=== PATIENT | female | born 1965 | race Asian ===

== ENCOUNTER 2023-05-09 17:08 | Emergency (ER) | payer OTHER, SELFPAY ==
[2023-05-09 17:23] VITALS: BP 140/62; PULSE 87; RESP 16; TEMP 36.7; O2SAT 96; BMI 21.9
--- NOTE | 2023-05-09 17:26 | DI.RAD.S_ITS ---
PROCEDURE: XR CHEST 1V INDICATIONS: PRODUCTIVE COUGH X 5 DAYS TECHNIQUE: One view of the chest was acquired. COMPARISON: None. FINDINGS: Surgical changes and devices: None. Lungs and pleura: No dense consolidation or pleural effusion. Mediastinum: Normal heart size Bones and chest wall: Unremarkable IMPRESSION: Portable single view radiograph without acute abnormality. Dictated by: Kevin Gómez M.D. on 05/09/2023 at 18:12 Approved by: Kevin Gómez M.D. on 05/09/2023 at 18:12
[2023-05-09 17:32] VITALS: PULSE 81; O2SAT 98
[2023-05-09 17:33] VITALS: BP 121/76; PULSE 81; O2SAT 97
--- NOTE | 2023-05-09 17:34 | ED.URI ---
HPI - URI/Sore Throat <Sheila Becerril MD - Last Filed: 05/10/23 12:39> General Chief Complaint: Upper Respiratory Symptoms Stated Complaint: cough for 5 days Time Seen by Provider: 05/09/23 17:26 Source: patient Mode of arrival: Family Vehicle History of Present Illness HPI Narrative: 57-year-old female with history of hyperlipidemia presents for 6 days of productive cough and subjective fevers. No measured temperature at home. Has been using [id number] decongestants as well as cough and cold medications without significant relief. Also endorsing sore throat x1 day. Related Data Previous Rx's Medication Instructions Recorded benzonatate 100 mg capsule 100 mg PO BID-TID PRN cough #20 05/09/23 caps Allergies Allergy/AdvReac Type Severity Reaction Status Date / Time No Known Allergies Allergy Uncoded 08/01/17 12:40 Review of Systems <Sheila Becerril MD - Last Filed: 05/10/23 12:39> Review of Systems Narrative: Negative except as noted above Exam <Sheila Becerril MD - Last Filed: 05/10/23 12:39> Initial Vital Signs Initial Vital Signs: Vital Signs Temperature 98.0 F 05/09/23 17:23 Pulse Rate 87 05/09/23 17:23 Respiratory Rate 16 05/09/23 17:23 Blood Pressure 140/62 05/09/23 17:23 Pulse Oximetry 96 05/09/23 17:23 Oxygen Delivery Method Room Air 05/09/23 17:23 Const: Awake, alert, ill-appearing, nontoxic Eyes: PERRL, EOMI, conjunctiva normal ENT: Pharyngeal erythema without edema or exudates Cardiac: regular rate, regular rhythm RESP: clear bilaterally, no wheezing, active coughing GI: Atraumatic, soft, nontender, nondistended, no rebound, no guarding MSK: Atraumatic, full range of motion, pulses equal Skin: Warm, Dry, intact, no rashes Neuro: AO x3, CN II-XII grossly intact, moves all extremities <Naun Carreon DO - Last Filed: 05/09/23 18:41> Initial Vital Signs Initial Vital Signs: Vital Signs Temperature 98.0 F 05/09/23 17:23 Pulse Rate 87 05/09/23 17:23 Respiratory Rate 16 05/09/23 17:23 Blood Pressure 140/62 05/09/23 17:23 Pulse Oximetry 96 05/09/23 17:23 Oxygen Delivery Method Room Air 05/09/23 17:23 Course <Sheila Becerril MD - Last Filed: 05/10/23 12:39> Course Course Narrative: WELL-APPEARING PATIENT WITH 5 DAYS OF COUGH AND SUBJECTIVE FEVER. LUNGS ARE CLEAR TO AUSCULTATION BILATERALLY, WILL SWAB FOR FLU/COVID/RSV Care of patient signed to Dr. Carreon at 1800 Orders Ordered: Discontinued Medications Benzonatate (Benzonatate 100 Mg Capsule) 100 mg PO NOW ONE Stop: 05/09/23 18:39 Last Admin: 05/09/23 18:56 Dose: 100 mg Documented By: SB Vital Signs Vital signs: Vital Signs - 8 hr 05/09/23 17:23 05/09/23 17:32 05/09/23 17:33 Temperature 98.0 F Pulse Rate 87 81 Respiratory Rate 16 Blood Pressure 140/62 121/76 Pulse Oximetry 96 98 Oxygen Delivery Method Room Air 05/09/23 17:33 05/09/23 18:00 05/09/23 18:01 Temperature Pulse Rate 81 72 74 Respiratory Rate Blood Pressure Pulse Oximetry 97 98 98 Oxygen Delivery Method Room Air Room Air 05/09/23 18:01 Temperature Pulse Rate Respiratory Rate Blood Pressure 107/66 Pulse Oximetry Oxygen Delivery Method <Naun Carreon DO - Last Filed: 05/09/23 18:41> Orders Ordered: Discontinued Medications Benzonatate (Benzonatate 100 Mg Capsule) 100 mg PO NOW ONE Stop: 05/09/23 18:39 Last Admin: 05/09/23 18:56 Dose: 100 mg Documented By: SB Vital Signs Vital signs: Vital Signs - 8 hr 05/09/23 17:23 05/09/23 17:32 05/09/23 17:33 Temperature 98.0 F Pulse Rate 87 81 Respiratory Rate 16 Blood Pressure 140/62 121/76 Pulse Oximetry 96 98 Oxygen Delivery Method Room Air 05/09/23 17:33 05/09/23 18:00 05/09/23 18:01 Temperature Pulse Rate 81 72 74 Respiratory Rate Blood Pressure Pulse Oximetry 97 98 98 Oxygen Delivery Method Room Air Room Air 05/09/23 18:01 Temperature Pulse Rate Respiratory Rate Blood Pressure 107/66 Pulse Oximetry Oxygen Delivery Method [facility] - URI/Sore Throat <Sheila Becerril MD - Last Filed: 05/10/23 12:39> Lab Data Labs: Lab Results 05/09/23 Range/Units 17:30 SARS-CoV-2 (PCR) Negative (Negative) Influenza A (RT-PCR) Flu a negative (NEGATIVE) Influenza B (RT-PCR) Flu b negative (NEGATIVE) RSV (PCR) Positive A (Negative) <Naun Carreon DO - Last Filed: 05/09/23 18:41> Lab Data Labs: Lab Results 05/09/23 Range/Units 17:30 SARS-CoV-2 (PCR) Negative (Negative) Influenza A (RT-PCR) Flu a negative (NEGATIVE) Influenza B (RT-PCR) Flu b negative (NEGATIVE) RSV (PCR) Positive A (Negative) Imaging Data Chest x-ray: Radiologist's Impression: PROCEDURE: XR CHEST 1V INDICATIONS: PRODUCTIVE COUGH X 5 DAYS TECHNIQUE: One view of the chest was acquired. COMPARISON: None. FINDINGS: Surgical changes and devices: None. Lungs and pleura: No dense consolidation or pleural effusion. Mediastinum: Normal heart size Bones and chest wall: Unremarkable IMPRESSION: Portable single view radiograph without acute abnormality. [facility] Narrative Medical decision making narrative: Dr carreon: Received turned over. We have patient's history and physical exam. Patient is not hypoxic. Her chest x-ray is unremarkable. She is RSV positive. I did discuss these findings with the patient. No indication for antibiotics. Will try to help with the symptoms of the cough. Prescription was sent to the pharmacy of her choice. She was given return precautions. She expressed understanding and agreement. Discharge Plan Departure Patient Disposition: Home Clinical Impression: Respiratory syncytial virus (RSV), Cough Instructions: Cough (Alternative Therapy), DI for Respiratory Syncytial Virus -- Adults Activity Restrictions/Additional Instructions: A prescription for the cough medicine was sent to the [facility] pharmacy. You can take it as needed and as directed. You can take Tylenol/ibuprofen for any fevers or body aches. Return to the emergency department for new symptoms. Prescriptions: New benzonatate 100 mg capsule 100 mg PO BID-TID PRN (Reason: cough) Qty: 20 0RF Referrals: Fouzia Mcnamara ARNP [Primary Care Provider] - Stand Alone Forms: Patient Portal/API, Work Release Note
[2023-05-09 18:00] VITALS: PULSE 72; O2SAT 98
[2023-05-09 18:01] VITALS: BP 107/66; PULSE 74; O2SAT 98
[2023-05-09 18:25] LABS: Influenza A - CEPHEID Flu A NEGATIVE (NEGATIVE); Influenza B - CEPHEID Flu B NEGATIVE (NEGATIVE); Respiratory Syncytial Virus POSITIVE (Negative)
[2023-05-09 18:27] LABS: COVID-19 CEPHEID 4-PLEX PCR Negative (Negative)
[2023-05-09 18:30] VITALS: BP 112/72; PULSE 69; O2SAT 96
[2023-05-09] MEDS: BENZONATATE 100 MG CAPSULE PO (18:56)
== END 2023-05-09 19:06 | disposition home or self-care (01) ==
PROVIDERS: Emergency Medicine; Emergency Provider Emergency Medicine; PCP Nurse Practitioner Family
DX: J06.9 Acute upper respiratory infection, unspecified (principal); B97.4 Respiratory syncytial virus as the cause of diseases classified elsewhere; Z20.822 Contact with and (suspected) exposure to COVID-19
CPT/HCPCS: 0241U; 71045; 99283